=== PATIENT | male | born 1990 | race African-American/Black ===

== ENCOUNTER 2023-12-30 00:02 | Emergency (ER) | payer MEDICAID ==
[~2023-12-30] VITALS: Ht 177.8 cm; Wt 82.5 kg
[2023-12-30 00:11] VITALS: BP 152/100; PULSE 95; RESP 20; TEMP 98.3; O2SAT 100
[2023-12-30] MEDS ORDERED: IBUP-1456 PO (01:57)
[2023-12-30] MEDS ORDERED: CLIN1CAP70 PO (01:57)
[2023-12-30] MEDS ORDERED: CEPH500C PO (01:57)
[2023-12-30] MEDS: KETOROLAC TROMETH 30 MG/ML 1ML VIAL IV ONE (02:26)
[2023-12-30] MEDS: CLINDAMYCIN 900MG IV 50 ML IV ONE (02:26)
[2023-12-30] MEDS: TETANUS-DIPTH-ACEL PERTUSSIS 0.5ML SYR Tdap IM ONE (02:27)
[2023-12-30] MEDS: cefTRIAXone 1GM/50ML D5W 50 ML IV ONE (02:40)
== END 2023-12-30 03:30 | disposition home or self-care (01) ==
LOC: ER 00:02
DX: S60.511A Abrasion of right hand, initial encounter (principal); L03.113 Cellulitis of right upper limb; Z79.899 Other long term (current) drug therapy; Y08.89XA Assault by other specified means, initial encounter; Y93.89 Activity, other specified; Y92.89 Other specified places as the place of occurrence of the external cause; Y99.8 Other external cause status
CPT/HCPCS: 73110; 73130; 90471; 90715; 96365; 96368; 96375; 99284; J0696; J1885; J3490

== ENCOUNTER 2024-01-07 10:52 | Emergency (ER) | payer MEDICAID ==
[~2024-01-07] VITALS: Ht 177.8 cm; Wt 80.9 kg
[~2024-01-07 10:52] MED LIST: CEPH500C PO; CLIN1CAP70 PO; IBUP-1456 PO
[2024-01-07 11:38] VITALS: BP 143/97; PULSE 73; RESP 16; TEMP 97.9; O2SAT 98
[2024-01-07] MEDS: cefTRIAXone SOD 1,000 MG VL IM ONE (11:59)
[2024-01-07] MEDS ORDERED: BACDST PO (12:41)
[2024-01-07] MEDS ORDERED: NAPR-746 PO (12:41)
== END 2024-01-07 12:45 | disposition home or self-care (01) ==
LOC: ER 10:52
DX: Z48.00 Encounter for change or removal of nonsurgical wound dressing (principal); M79.641 Pain in right hand
CPT/HCPCS: 96372; 99283; J0696